=== PATIENT | male | born 1945 | race Caucasian/White ===

== ENCOUNTER → 2020-02-21 | Outpatient (CLI) | payer OTHER ==
[~2020-02-21] MED LIST: ATOR10 PO; Aspirin EC81 MG PO; CVS FISH OIL 11 EACH; CVS MENOPAUSE PO; Calcium Glucon500 MG PO; Crestor20 MG PO; EFFIENT10 MG PO; ELIQUIS5 MG PO; ETOD200 PO; GLIM2 PO; HYDCHL25 PO; HYDR1TAB94 PO; LEFL20 PO; LISI20 PO; LISI5 PO; METF500 PO; METO100ER PO; METO50ER PO; NITR.6SL SL; SULF500 PO; Sulfazine500 MG PO
[2020-02-22 12:57] LABS: Adenovirus F 40/41 Not Detected (NOT DETECT); Astrovirus Not Detected (NOT DETECT); Campylobacter Sp Not Detected (NOT DETECT); Cryptosporidium Not Detected (NOT DETECT); Cyclospora Cayetanensis Not Detected (NOT DETECT); E. Coli O157 Not Detected (NOT DETECT); Entamoeba Histolytica Not Detected (NOT DETECT); Enteroaggregative E. coli-EAEC Not Detected (NOT DETECT); Enteropathogenic E. coli-EPEC Not Detected (NOT DETECT); Enterotoxigenic E. coli-ETEC Not Detected (NOT DETECT); Giardia Lamblia Not Detected (NOT DETECT); Norovirus GI/GII Not Detected (NOT DETECT); Plesiomonas Shigelloides Not Detected (NOT DETECT); Rotavirus A Not Detected (NOT DETECT); Salmonella Sp Not Detected (NOT DETECT); Sapovirus Not Detected (NOT DETECT); Shiga Toxin-prod E. coli-STEC Not Detected (NOT DETECT); Shigella/Enteroin E. coli-EIEC Not Detected (NOT DETECT); Vibrio Cholerae Not Detected (NOT DETECT); Vibrio Sp Not Detected (NOT DETECT); Yersinia Enterocolitica Not Detected (NOT DETECT)
== END | disposition home or self-care (01) ==
LOC: LAB SHORT 10:00 → LAB 10:00 → LAB SHORT 02-22 08:02
PROVIDERS: Nurse Practitioner
DX: K52.9 Noninfective gastroenteritis and colitis, unspecified (principal)
CPT/HCPCS: 0097U

== ENCOUNTER 2021-05-15 08:32 | Observation (INO) | payer OTHER ==
[~2021-05-15] VITALS: Ht 177.8 cm; Wt 69.8 kg
[2021-05-15] MEDS ORDERED: SITA25T2 PO (09:04)
[2021-05-15] MEDS ORDERED: OMEP20ER PO (09:04)
[2021-05-15] MEDS ORDERED: MIDO5 PO (09:05)
[2021-05-15 09:30] LABS: BASOPHILS ABSOLUTE AUTO 0.04 K/mm3 (0.00-0.23); BASOPHILS PERCENT AUTO 0 % (0-2); EOSINOPHILS ABSOLUTE AUTO 0.19 K/mm3 (0.00-0.68); EOSINOPHILS PERCENT AUTO 1 % (0-6); Hematocrit 36.1 % (37.0-53.0); Hemoglobin 12.3 g/dL (13.5-17.5); IMMATURE GRAN ABSOLUTE AUTO 0.07 K/mm3 (0.00-0.10); IMMATURE GRAN PERCENT AUTO 0 % (0-1); LYMPHOCYTES ABSOLUTE AUTO 2.54 K/mm3 (0.84-5.20); LYMPHOCYTES PERCENT AUTO 15 % (21-46); MONOCYTES ABSOLUTE AUTO 1.48 K/mm3 (0.16-1.47); MONOCYTES PERCENT AUTO 9 % (4-13); Mean Corpuscular HGB 28.9 pg (26.0-34.0); Mean Corpuscular HGB Conc 34.1 g/dL (31.5-36.5); Mean Corpuscular Volume 85 fL (80-100); Mean Platelet Volume 11.5 fL (9.1-12.4); NEUTROPHILS ABSOLUTE AUTO 12.76 K/mm3 (1.96-9.15); NEUTROPHILS PERCENT AUTO 75 % (41-73); Platelet Count 221 K/mm3 (150-400); RDW Standard Deviation 36.5 fL (35.1-46.3); Red Blood Cell Count 4.26 M/mm3 (4.30-5.90); White Blood Cell Count 17.08 K/mm3 (4.00-11.30)
[2021-05-15 09:35] LABS: Source, Urine Clean Catch
[2021-05-15 09:38] LABS: Appearance, Urine Clear (Clear); Bilirubin, Urine Neg (Neg); Blood, Urine 1+ (Neg); Color, Urine Yellow (P-Yellow); Glucose Qualitative, Urine Neg (Neg); Ketones, Urine Neg (Neg); Leukocyte Esterase, Urine Neg (Neg); Nitrite, Urine Neg (Neg); Protein, Urine 1+ (Neg); Urobilinogen, Urine NORM (Normal)
[2021-05-15 09:44] LABS: Bacteria Not Seen /hpf; Red Blood Cells, Urine 0-2 /hpf (0-2); Squamous Epithelial Cells Not Seen /hpf (Few); White Blood Cells, Urine 0-2 /hpf (0-5)
[2021-05-15 09:53] LABS: Albumin, Blood 3.4 g/dL (3.4-5.0); Albumin/Globulin Ratio 0.8 (0.8-1.8); Bilirubin, Total 0.5 mg/dL (0.1-1.0); Bun/Creatinine Ratio 10.3 (12.0-20.0); Calcium, Blood 10.1 mg/dL (8.5-10.1); Creatinine, Blood 3.88 mg/dL (0.60-1.20); Globulin, Blood 4.3 g/dL (2.2-4.0); Potassium, Blood 4.3 mmol/L (3.5-5.5); Total Protein, Blood 7.7 g/dL (6.4-8.2)
[2021-05-15 11:47] LABS: Influenza A, PCR NEGATIVE (NEGATIVE); Influenza B, PCR NEGATIVE (NEGATIVE); Resp Syncytial Virus, PCR NEGATIVE (NEGATIVE); SARS-Cov-2 (COVID-19) PCR, MMC NEGATIVE (NEGATIVE)
--- NOTE | 2021-05-15 18:00 | NUR ---
[address] Sun MACE THAT HE SPOKE WITH PATIENT REGARDING FULL CODE STATUS WHILE ON SURGERY THEN WILL BE DNR AFTER SURGERY THE PATIENT WISHES, DR. ORTIZ ALSO SAID HE WILL LET THE RECOVERY PERSONNEL KNOW & ASKED ME TO PASS IT TO THE [employer] SUPERVISOR RN.
--- NOTE | 2021-05-16 02:54 | NUR ---
PT IS ALERT AND ORIENTED X4. UP WITH SBA. PAIN TREATED WITH DILAUDID IV TWICE. VOIDING SMALL AMOUNTS; UNMEASURED. HEART RATE WAS ON 130-140S AT THE BEGINNING (ASYMPTOMATIC) OF THE SHIFT AND DECREASED AFTER 2100 MEDS. PT STATED TO BE HIS NORMAL AT 130S. SKIN INTACT WITH PUNTURE X3; GLUE.
--- NOTE | 2021-05-16 03:05 | NUR ---
PT IS ALERT AND ORIENTED X4. DRINKING FLUIDS AND TOELRATING. VOIDING SMALL AMOUNTS; UNMEASURED. UP WITH MINIMUN ASSITANCE. SKIN INTACT WITH PX3; WITH GLUE. PAIN TREATED WITH DILAUDID TWICE.
[2021-05-16 04:38] LABS: Hematocrit 36.8 % (37.0-53.0); Hemoglobin 12.6 g/dL (13.5-17.5); Mean Corpuscular HGB 29.4 pg (26.0-34.0); Mean Corpuscular HGB Conc 34.2 g/dL (31.5-36.5); Mean Corpuscular Volume 86 fL (80-100); Platelet Count 268 K/mm3 (150-400); Red Blood Cell Count 4.28 M/mm3 (4.30-5.90); White Blood Cell Count 17.08 K/mm3 (4.00-11.30)
--- NOTE | 2021-05-16 15:02 | NUR ---
Initial Interview with [facility] [employer] Teacher 1. Who did you speak with? Spoke with patient 2. What is the patient's prior level of functions? Independent lives alone. Patient able to perform ADL's without assistance. Patient states he as a walker and a wheelchair in his shed if needed. Patient has good friends, Jessy and her that helps when needed. 3. What is the patient's current living situation? Lives alone in a one story home he had built 10 years ago. The residence has four steps in the front and patient able to navigate the steps. He plans to build a ramp. 4. Is the patient and/or family able to provide transportation to and from doctor's appointments and sweet pickle maker prescriptions? Yes, patient still drives 5. Does patient still drive? Yes 6. POA/PCP/NOK: NOK: Jessy friend/PCP Dr. Scarlett Moulton 7. Discharge goals: Home/TBD -Home: patient more than likely will discharge home-no barriers; patient has running water/utilities/safe home environment/support network -DME: TBD; patient has a walker and wheelchair -Medication Management: self-management -Preferred Pharmacy: [facility] -Housekeeping need: patient has a penal officer -Cooking: patient eats out everyday 8. List barriers to discharge: None known at this time 9. Discharge Plan: Plan is to discharge home/TBD 10. PCP Follow up appointment: Will be scheduled within seven calendar days of discharge 11. Patient is a and has her first appointment next week.
--- NOTE | 2021-05-16 16:35 | NUR ---
SHIFT SUMMARY PT A&OX4, VSS/RA, DIALYSIS TODAY, CBG COVERAGE PER EMAR. POD1 LAP APPY, 3 DURABOND SITES CDI. ANUP PO. VOIDING WELL/DENIES FLATUS&BM. PAIN MANAGED WITH 5 MG NORCO. AMB INDEPENDENTLY TO BRP/IN ROOM/HALLWAY, UP TO CHAIR T/O SHIFT. PLAN FOR DC TOMORROW. WILL REPORT TO ONCOMING SUSY MENDIETA.
--- NOTE | 2021-05-17 04:12 | NUR ---
PT IS ALERT AND ORIENTED X4. DRINKING AND EATING. VOIDING SMALL AMOUNTS.AMBULATING. PX3 CDI. PAIN TREATED WITH NORCO WITH GOOD RESULTS. PT STATES TO FEEL BETTER WHEN SEATING. UNEVENTFUL NIGHT.
[2021-05-17 04:36] LABS: Hematocrit 27.9 % (37.0-53.0); Hemoglobin 9.4 g/dL (13.5-17.5)
[2021-05-17 05:12] LABS: Albumin, Blood 3.1 g/dL (3.4-5.0); Anion Gap 9 mmol/L (6-16); Blood Urea Nitrogen 44 mg/dL (8-24); CO2, Blood 30 mmol/L (21-32); Calcium, Blood 9.6 mg/dL (8.5-10.1); Chloride, Blood 98 mmol/L (98-108); Creatinine, Blood 4.42 mg/dL (0.60-1.20); Glomerular Filtration Rate 13 (60-); Glucose, Blood 200 mg/dL (70-99); Magnesium, Blood 1.7 mg/dL (1.6-2.4); Phosphorus, Blood 4.1 mg/dL (2.5-4.9); Potassium, Blood 4.4 mmol/L (3.5-5.5); Sodium, Blood 137 mmol/L (136-145)
[2021-05-17 07:20] LABS: Hematocrit 29.7 % (37.0-53.0); Hemoglobin 9.9 g/dL (13.5-17.5); Mean Corpuscular HGB 29.6 pg (26.0-34.0); Mean Corpuscular HGB Conc 33.3 g/dL (31.5-36.5); Mean Corpuscular Volume 89 fL (80-100); Mean Platelet Volume 11.4 fL (9.1-12.4); Platelet Count 194 K/mm3 (150-400); RDW Coefficient Variation 12.3 % (11.7-14.2); RDW Standard Deviation 39.3 fL (35.1-46.3); Red Blood Cell Count 3.35 M/mm3 (4.30-5.90); White Blood Cell Count 15.89 K/mm3 (4.00-11.30)
[2021-05-17] MEDS ORDERED: Norco 5-325 Ta1 EACH PO (10:43)
--- NOTE | 2021-05-17 10:59 | NUR ---
DISCHARGE NOTE: PATIENT WAS EDUCATED ON DISCHARGE INSTRUCTIONS. HE VERBALIZED UNDERSTANDING OF INSTRUCTIONS. IV WAS TAKEN OUT AND WAS WNL. PATIENT IS TOLERATING PO INTAKE AND IS VOIDING. HIS 3 LAP SITES ON HIS ABD ARE C/D/I. BOWEL TONES ARE ACTIVE. HE IS DRESSED AND HAS HIS ITEMS PACKED. HE WILL BE WHEELCHAIRED OUT TO HIS FRIENDS CAR TO BE TAKEN HOME.
[2021-05-19] MEDS ORDERED: CALCIUM CIT 311 EAC7 PO (10:29)
[2021-05-19] MEDS ORDERED: Vitamin C100 M1 PO (10:29)
[2021-05-19] MEDS ORDERED: ERGO400 PO (10:30)
[2021-05-19] MEDS ORDERED: DHA100 MG PO (10:30)
[2021-05-19] MEDS ORDERED: MIDO5 PO (10:31)
[2021-05-19] MEDS ORDERED: SENNA LAXATIVE8.6 MG PO (10:31)
[2021-05-19] MEDS ORDERED: MULTI-VITAMIN1 EAC2 PO (10:32)
== END 2021-05-17 10:45 | disposition home or self-care (01) ==
LOC: ER 08:32 → SURS 08:33
PROVIDERS: Internal Medicine Nephrology; Physician Assistant; Surgery; ADMIT Family Medicine
PROC: 0DTJ4ZZ Resection of Appendix, Percutaneous Endoscopic Approach (ICD-10-PCS; principal; 2021-05-15 19:00)
DX: K35.891 Other acute appendicitis without perforation, with gangrene (principal); I25.10 Atherosclerotic heart disease of native coronary artery without angina pectoris; I12.0 Hypertensive chronic kidney disease with stage 5 chronic kidney disease or end stage renal disease; E11.22 Type 2 diabetes mellitus with diabetic chronic kidney disease; N18.6 End stage renal disease; E87.1 Hypo-osmolality and hyponatremia; D64.9 Anemia, unspecified; E86.9 Volume depletion, unspecified; K22.9 Disease of esophagus, unspecified; I48.0 Paroxysmal atrial fibrillation; Z99.2 Dependence on renal dialysis; Z20.822 Contact with and (suspected) exposure to COVID-19; Z95.818 Presence of other cardiac implants and grafts; Z87.891 Personal history of nicotine dependence; Z79.84 Long term (current) use of oral hypoglycemic drugs
CPT/HCPCS: 0241U; 36415; 74176; 76705; 80053; 80069; 81001; 82947; 83690; 83735; 85014; 85018; 85025; 85027; 88304; 96365; 96376; 99285-25; A9270; G0257; G0378; J1100; J1170; J2405; J2543; J2704; J3010; J7030

== ENCOUNTER 2021-06-28 10:51 | Day surgery (SDC) | payer OTHER ==
[~2021-06-28] VITALS: Ht 177.8 cm; Wt 74.8 kg
[~2021-06-28 10:51] MED LIST changes: +CALCIUM CIT 311 EAC7 PO; +DHA100 MG PO; +ERGO400 PO; +MIDO5 PO; +MULTI-VITAMIN1 EAC2 PO; +Norco 5-325 Ta1 EACH PO; +OMEP20ER PO; +SENNA LAXATIVE8.6 MG PO; +SITA25T2 PO; +Vitamin C100 M1 PO
--- NOTE | 2021-06-28 15:21 | NUR ---
3mL AIR RELEASED FROM TR BAND. NO BLEEDING, OOZING OR HEMATOMA NOTED. VSS. WILL CONTINUE TO MONITOR.
--- NOTE | 2021-06-28 15:47 | NUR ---
ALL AIR RELEASED FROM TR [facility]AND. NO BLEEDING, OOZING OR HEMATOMA NOTED.
--- NOTE | 2021-06-28 16:37 | NUR ---
PT DRESSED PER SELF. L RADIAL SITE STABLE. DISCHARGE INSTRUCTIONS REVIEWED WITH PT, VERBALIZES UNDERSTANDING OF INSTRUCTIONS. PT TO PRIVATE VEHICLE PER W/C.
== END 2021-06-28 16:30 | disposition home or self-care (01) ==
LOC: MHTC 10:51
DX: T82.898A Other specified complication of vascular prosthetic devices, implants and grafts, initial encounter (principal); N18.6 End stage renal disease; I25.10 Atherosclerotic heart disease of native coronary artery without angina pectoris; I12.0 Hypertensive chronic kidney disease with stage 5 chronic kidney disease or end stage renal disease; E11.22 Type 2 diabetes mellitus with diabetic chronic kidney disease; I65.29 Occlusion and stenosis of unspecified carotid artery; E78.5 Hyperlipidemia, unspecified; I48.0 Paroxysmal atrial fibrillation; M06.9 Rheumatoid arthritis, unspecified; Y71.2 Prosthetic and other implants, materials and accessory cardiovascular devices associated with adverse incidents; Z95.5 Presence of coronary angioplasty implant and graft; Z87.891 Personal history of nicotine dependence; Z79.01 Long term (current) use of anticoagulants; Z79.84 Long term (current) use of oral hypoglycemic drugs
CPT/HCPCS: 76937; 99152; 99153; C1725; C1769; C1887; C1894; J1644; J2250; J3010; J7030; Q9967

== ENCOUNTER 2021-09-08 07:46 | Day surgery (SDC) | payer OTHER ==
[~2021-09-08] VITALS: Ht 177.8 cm; Wt 75.1 kg
== END 2021-09-08 10:21 | disposition home or self-care (01) ==
LOC: ORSCSDS 07:46
PROVIDERS: Surgery
PROC: 0DBL8ZX Excision of Transverse Colon, Via Natural or Artificial Opening Endoscopic, Diagnostic (ICD-10-PCS; principal; 2021-09-08 09:00)
PROC: 0DBH8ZX Excision of Cecum, Via Natural or Artificial Opening Endoscopic, Diagnostic (ICD-10-PCS; principal; 2021-09-08 09:00)
PROC: 0DBM8ZX Excision of Descending Colon, Via Natural or Artificial Opening Endoscopic, Diagnostic (ICD-10-PCS; principal; 2021-09-08 09:00)
PROC: 0DBN8ZX Excision of Sigmoid Colon, Via Natural or Artificial Opening Endoscopic, Diagnostic (ICD-10-PCS; principal; 2021-09-08 09:00)
PROC: 0DBK8ZX Excision of Ascending Colon, Via Natural or Artificial Opening Endoscopic, Diagnostic (ICD-10-PCS; principal; 2021-09-08 09:00)
PROC: 0DB48ZX Excision of Esophagogastric Junction, Via Natural or Artificial Opening Endoscopic, Diagnostic (ICD-10-PCS; 2021-09-08 09:00)
PROC: 0DB68ZX Excision of Stomach, Via Natural or Artificial Opening Endoscopic, Diagnostic (ICD-10-PCS; 2021-09-08 09:00)
DX: R19.5 Other fecal abnormalities (principal); K29.80 Duodenitis without bleeding; I48.91 Unspecified atrial fibrillation; N18.9 Chronic kidney disease, unspecified; E11.9 Type 2 diabetes mellitus without complications; Z79.01 Long term (current) use of anticoagulants; Z79.899 Other long term (current) drug therapy
CPT/HCPCS: 82947; 88305; 88342; J2704; J7030; J7120

== ENCOUNTER 2023-01-09 09:53 | Day surgery (SDC) | payer OTHER ==
[~2023-01-09] VITALS: Ht 177.8 cm; Wt 79.7 kg
[~2023-01-09 09:53] MED LIST changes: +ALOGLIPTIN6.25 M1 PO; +Calcium Acetat667 MG; +FISH OIL; +MULVITA PO; +SEVEC800 PO; +TAMS.4ER PO; +VITAMIN D310 MC4; +Vitamin C100 M1
[2023-01-09 10:49] VITALS: BP 114/88
--- NOTE | 2023-01-09 10:50 | NUR ---
Ambulatory in Day Surgery. History, Chart, Medications and Allergies reviewed before start of procedure.Lungs clear T/O to Auscultation. Patient confirms NPO status and agrees with scheduled surgery. Pre-Op teaching done. Pt verbalizes understanding. Patient States Post-Procedure ride home has been arranged.
--- NOTE | 2023-01-09 12:57 | NUR ---
01/09/23 1257 Nadeem Guzman History, Chart, Medications and Allergies reviewed before start of procedure. MONITOR INTACT WITH CONTINUOUS PULSE OXIMETRY, CONTINUOUS END TITAL CO2, AND INTERMITTENT BLOOD PRESSURE.EKG MONITORED DURING PROCEDURE.O2 VIA POM MASK INTACT THROUGHOUT SEDATION/PROCEDURE. Bite Block Placed,WILL REMOVE AFTER PROCEDURE. See Anesthesia record.
[2023-01-09 13:12] VITALS: BP 122/74
[2023-01-09 13:27] VITALS: BP 122/96
--- NOTE | 2023-01-09 13:29 | NUR ---
Patient up to Ambulate independently. Gait steady. Discharge instructions reviewed with patient. Patient verbalizes understanding. Copy given to patient to take home. Patient States Post-Procedure ride home has been arranged. Discharged via wheelchair to private car for ride home.
== END 2023-01-09 13:40 | disposition home or self-care (01) ==
LOC: ORSCMMR 09:53 → ORD 11:00 → ORSCMMR 11:00
PROVIDERS: Surgery
PROC: 0DB48ZX Excision of Esophagogastric Junction, Via Natural or Artificial Opening Endoscopic, Diagnostic (ICD-10-PCS; principal; 2023-01-09 11:00)
DX: K22.70 Barrett's esophagus without dysplasia (principal); I25.10 Atherosclerotic heart disease of native coronary artery without angina pectoris; E11.22 Type 2 diabetes mellitus with diabetic chronic kidney disease; I12.0 Hypertensive chronic kidney disease with stage 5 chronic kidney disease or end stage renal disease; N18.6 End stage renal disease; K21.9 Gastro-esophageal reflux disease without esophagitis; I48.0 Paroxysmal atrial fibrillation; M06.9 Rheumatoid arthritis, unspecified; Z87.891 Personal history of nicotine dependence; Z79.01 Long term (current) use of anticoagulants; Z79.899 Other long term (current) drug therapy
CPT/HCPCS: 82947; 84132; 88305; J2001; J2704; J7030

== ENCOUNTER 2023-11-13 07:46 | Inpatient (IN) | payer OTHER ==
[~2023-11-13] VITALS: Ht 177.8 cm; Wt 77.2 kg
[2023-11-13] VITALS (18 sets, daily range): BP systolic 80–112; BP diastolic 51–84
[~2023-11-13 07:46] MED LIST changes: +Acerola C500 MG PO; +Amaryl2 MG PO; +BASAGLAR K100 UNIT/1 SC; +Crestor40 MG PO; +DECADRON6 M1 PO; +ENTRESTO 97 MG1 EACH PO; +Heparin Sodium 1000 Units/ML 10ML MDV ONE; +JARDIANCE10 MG PO; +LOKELMA10 GM PO; +METO25ER PO; +MIRALAX17 GM PO; +NS 1,000 ML IV ONE; +NS 250 ML IV ONE; +Nitroglycerin 2 MG/20 ML BTL ONE; +PIOG30 PO; +SITA100T2 PO; +VITAMIN D325 MC3 PO; +Verapamil HCL 2.5 MG/ML 2ML Injection ONE
--- NOTE | 2023-11-13 08:18 | NUR ---
PT HAS BILAT 3+PITING EDEMA FEET. DR DOWNEY IN ROOM TO SEE PT.
--- NOTE | 2023-11-13 09:07 | NUR ---
PT WILL BE TRANSFERED TO PCU [address]OWNEY.
[2023-11-13] MEDS ORDERED: Rena-Vite Tabl0.8 MG PO (10:42)
[2023-11-13] MEDS ORDERED: ROSUVASTATIN CA10 MG PO (10:44)
[2023-11-13 10:47] LABS: Adenovirus Not Detected (NOT DETECT); Bordetella pertussis Not Detected (NOT DETECT); Chlamydophila pneumoniae Not Detected (NOT DETECT); Coronavirus 229E Not Detected (NOT DETECT); Coronavirus HKU1 Not Detected (NOT DETECT); Coronavirus NL63 Not Detected (NOT DETECT); Coronavirus OC43 Not Detected (NOT DETECT); Human Metapneumovirus Not Detected (NOT DETECT); Human Rhinovirus/Enterovirus Not Detected (NOT DETECT); Influenza A/2009-H1 Not Detected (NOT DETECT); Influenza A/H1 Not Detected (NOT DETECT); Influenza A/H3 Not Detected (NOT DETECT); Influenza B Not Detected (NOT DETECT); Mycoplasma pneumoniae Not Detected (NOT DETECT); Parainfluenza Virus 1 Not Detected (NOT DETECT); Parainfluenza Virus 2 Not Detected (NOT DETECT); Parainfluenza Virus 3 Not Detected (NOT DETECT); Parainfluenza Virus 4 Not Detected (NOT DETECT); Respiratory Syncytial Virus Not Detected (NOT DETECT); SARS-Cov-2 (COVID-19), BioFire Not Detected (NOT DETECT)
[2023-11-13] MEDS ORDERED: CALCIUM 600-D31 EAC2 PO (10:49)
[2023-11-13 11:12] LABS: Hematocrit 34.2 % (37.0-53.0); Hemoglobin 11.3 g/dL (13.5-17.5); Mean Corpuscular Volume 97 fL (80-100); Mean Platelet Volume 12.9 fL (9.1-12.4); Platelet Count 88 K/mm3 (150-400); RDW Coefficient Variation 18.3 % (11.7-14.2); RDW Standard Deviation 63.5 fL (35.1-46.3); Red Blood Cell Count 3.53 M/mm3 (4.30-5.90); White Blood Cell Count 11.86 K/mm3 (4.00-11.30)
[2023-11-13 11:40] LABS: Bun/Creatinine Ratio 8.6 (12.0-20.0); Calcium, Blood 8.4 mg/dL (8.5-10.1); Creatinine, Blood 6.52 mg/dL (0.60-1.20)
[2023-11-13] MEDS ORDERED: Midodrine 5 MG Tab PO SCH (13:00)
[2023-11-13] MEDS ORDERED: Albumin (Human) 25gm/100ml 100 ML IV SCH (13:00)
--- NOTE | 2023-11-13 18:32 | NUR ---
SHIFT SUMMARY; ADMIT FROM [facility]. PT SCHEDULED FOR ANGIO TODAY, WAS UNABLE TO PROCEED WITH PROCEDURE FOR MULTIPLE HEALTH CONCERNS. ARRIVES ON 2L VIA NC. L/S DIM T/O, SATS 94%, SOFT BP, AFIB 100-130 WITH EXERTION. AMBULATES IN ROOM WITH ASSISTANCE, REPOSITIONS SELF IN BED. DIAYLSIS COMPLETE TODAY, 1L FLUID RESTRICTION STARTED. PLEASANT AND COOPERATIVE WITH CARE, WILL CONTINUE TO MONITOR AND TREAT UNTIL CHANGE OF SHIFT.
[2023-11-13] MEDS ORDERED: Apixaban 5 MG Tab PO SCH (21:00)
[2023-11-13 23:22] LABS: Source, Urine Clean Catch
[2023-11-13 23:25] LABS: Appearance, Urine Turbid (Clear); Blood, Urine 5+ (Neg); Color, Urine Yellow (P-Yellow); Glucose Qualitative, Urine 4+ (Neg); Ketones, Urine 1+ (Neg); Leukocyte Esterase, Urine 3+ (Neg); Nitrite, Urine Neg (Neg); Protein, Urine 3+ (Neg); Urobilinogen, Urine NORM (Normal)
[2023-11-13 23:38] LABS: Bilirubin, Urine 1+ (Neg)
[2023-11-13 23:40] LABS: Bacteria Many /hpf; Red Blood Cells, Urine 50-100 /hpf (0-2); Squamous Epithelial Cells Few /hpf (Few); White Blood Cells, Urine TNTC /hpf (0-5)
[2023-11-14] VITALS (22 sets, daily range): BP systolic 75–130; BP diastolic 51–110
--- NOTE | 2023-11-14 04:08 | NUR ---
SHIFT NOTES: PT A/OX4 ABLE TO USE CALL LIGHT AND MAKE NEEDS KNOWN. HE IS ON TELE IN AFIB, DENIES CHEST PAIN/PRESSURE. BP STABLE. HE IS ON 2L NC WITH SPO2>90%, DENIES SOB. PT ABLE TO URINATE ENOUGH FOR UA. HE IS RESTING COMFORTABLY WITH THE CALL LIGHT IN REACH, DENIES NEEDS AT THIS TIME. WILL CONTINUE TO MONITOR AND REPORT TO ONCOMING RN
[2023-11-14] MEDS ORDERED: Omeprazole 20 MG CapCR PO SCH (06:00)
[2023-11-14] MEDS ORDERED: Vitamin B Cmplx/Vit C/Folic Ac 1 Tab PO SCH (06:00)
[2023-11-14 06:12] LABS: Hematocrit 34.7 % (37.0-53.0)
[2023-11-14 06:50] LABS: Magnesium, Blood 2.1 mg/dL (1.6-2.4)
[2023-11-14 07:05] LABS: Albumin, Blood 2.5 g/dL (3.4-5.0); Anion Gap 15 mmol/L (3-11); Blood Urea Nitrogen 43 mg/dL (8-24); Bun/Creatinine Ratio 7.7 (12.0-20.0); CO2, Blood 29 mmol/L (21-32); Calcium, Blood 8.6 mg/dL (8.5-10.1); Chloride, Blood 100 mmol/L (98-108); Creatinine, Blood 5.55 mg/dL (0.60-1.20); Glomerular Filtration Rate 10 (60-); Glucose, Blood 234 mg/dL (70-99); Phosphorus, Blood 5.5 mg/dL (2.5-4.9); Potassium, Blood 3.4 mmol/L (3.5-5.5)
[2023-11-14 07:09] LABS: Sodium, Blood 141 mmol/L (136-145)
[2023-11-14] MEDS ORDERED: Albumin (Human) 25gm/100ml 100 ML IV SCH (07:30)
[2023-11-14] MEDS ORDERED: Anticoagulant Sod Citrate Soln 3 ML SYR INJ PRN (07:30)
[2023-11-14] MEDS ORDERED: Insulin Human Lispro 100 Units/ML 3ML Syringe SC SCH (07:30)
[2023-11-14] MEDS ORDERED: Calcium/Vit D 600 mg-400 Unit Tab PO SCH (09:00)
[2023-11-14] MEDS ORDERED: Alogliptin Benzoate 6.25 MG TABLET PO SCH (09:00)
[2023-11-14] MEDS ORDERED: Heparin Sodium,Porcine 5,000 UNIT/0.5 ML SDV SC SCH (09:00)
[2023-11-14] MEDS ORDERED: Rosuvastatin Calcium 10 MG Tab PO SCH (09:00)
[2023-11-14] MEDS ORDERED: CefTRIAXone Sodium 1,000 MG in NS 100 ML IV SCH (09:30)
[2023-11-14 09:31] LABS: Mean Platelet Volume 12.1 fL (9.1-12.4); Platelet Count 98 K/mm3 (150-400)
[2023-11-14 09:47] LABS: International Normalized Ratio 1.4; Prothrombin Time Results 14.6 Sec (9.7-11.5)
[2023-11-14] MEDS ORDERED: Potassium Chloride 10 Meq Tablet SA PO ONE (09:55)
[2023-11-14] MEDS ORDERED: Heparin Sodium,Porcine/0.5 NS 500 ML IV SCH (10:00)
--- NOTE | 2023-11-14 18:06 | NUR ---
SHIFT SUMMARY; ASSUMED CARE AT 0700. A/A/OX4. 2L O2 VIA NC. TAKEN TO DIALYSIS AT [id number]. MOVES SELF IN BED, AMBULATES TO RESTROOM WITH STANDBY ASSIST. 1L FLUID RESTRICTION IN PLACE. BLOOD PRESSURE SOFT PER PT'S BASELINE. MEDICATED WITH MIDODRINE PER EMAR. AFIB WITH RATE 115 UP TO 130 WITH EXERTION BUT RECOVERS TO 100'S WITHIN MINUTES. DENIES CHEST PAIN OR INCRESED SOB WITH EXERTION. NPO AFTER MIDNIGHT TONIGHT FOR POSSIBLE ANGIOGRAM TOMORROW. HEPARIN INFUSING AT 15UNITS/KG. WILL CONTINUE TO MONITOR AND TREAT UNTIL CHANGE OF SHIFT.
[2023-11-14] MEDS ORDERED: Dose Adjust by Pharmacy XX STA (21:35)
[2023-11-14] MEDS ORDERED: Digoxin 0.25 MG/ML 2ML Amp IV ONE (22:10)
[2023-11-15] VITALS (14 sets, daily range): BP systolic 84–117; BP diastolic 62–73
--- NOTE | 2023-11-15 04:06 | NUR ---
SHIFT NOTE: PT A/OX4 USES CALL LIGHT APPROPRIATELY TO MAKE NEEDS KNOWN. HE IS ON TELE IN AFIB WITH RATES 120-140. MD NOTIFIED, DIGOXIN ADMINISTERED-SEE EMAR. RATES CONTINUE TO BE TACHY. PT DENIES CHEST PAIN/PRESSURE. HEPARIN HAS BEEN RUNNING PER EMAR T/O SHIFT. HE HAS BEEN NPO SINCE MIDNIGHT FOR ANGIO ON DAY SHIFT. HE IN 1-2L NC WITH SPO2 >90%. PT REPORTS SOB WITH EXERTION. CALL LIGHT IN REACH, WILL CONTINUE TO MONITOR AND REPORT TO ONCOMING RN
[2023-11-15 04:11] LABS: Hematocrit 33.8 % (37.0-53.0); Hemoglobin 10.7 g/dL (13.5-17.5); Mean Platelet Volume 12.9 fL (9.1-12.4); Platelet Count 115 K/mm3 (150-400)
[2023-11-15] MEDS ORDERED: Dose Adjust by Pharmacy XX STA ×2 (04:55→14:00)
--- NOTE | 2023-11-15 07:18 | NUR ---
UPDATE: SHAYAN CALLED TO NOTIFY NURSING STAFF THAT DREILING WILL BE ROUNDING AROUND NOON. PT IS TO BE KEPT NPO FOR POTENTIAL ANGIOGRAM.
[2023-11-15] MEDS ORDERED: Midodrine 5 MG Tab PO SCH (09:00)
[2023-11-15] MEDS ORDERED: Heparin Sodium 1000 Units/ML 10ML MDV ONE (10:26)
[2023-11-15] MEDS ORDERED: NS 1,000 ML IV ONE (10:26)
[2023-11-15] MEDS ORDERED: Verapamil HCL 2.5 MG/ML 2ML Injection ONE (10:26)
[2023-11-15] MEDS ORDERED: Nitroglycerin 2 MG/20 ML BTL ONE (10:26)
[2023-11-15] MEDS ORDERED: NS 250 ML IV ONE (10:26)
[2023-11-15] MEDS ORDERED: Digoxin 0.25 MG/ML 2ML Amp IV SCH (12:00)
[2023-11-15] MEDS ORDERED: ALOGLIPTIN6.25 M1 PO (16:10)
--- NOTE | 2023-11-15 17:33 | NUR ---
MET WITH PRABHJOT TO DISCUSS CODE STATUS AND FILL OUT A POLST. REVIEWED POLST WITH PATIENT AND HE DECIDED ON DNR AND COMFORT MEASURES. HE WILL BE GOING HOME ON HOSPICE TODAY. COPIES OF POLST MADE AND COPY FAXED TO REGISTRY.
--- NOTE | 2023-11-15 17:48 | NUR ---
DISCHARGE NOTE: ASSUMED CARE OF PT AT 0700 THIS AM. NO ACUTE CHANGES T/O THE DAY. PT HAD HD AND TOLERATED WELL. CARDIOLOGY SPOKE WITH HIM AND HIS FAMILY MEMBER WHILE IN HD AND EXPLAINED THAT THEY WOULD NOT DO AN ANGIOGRAM FOR HIM BECAUSE OF HIS HEALTH CONDITION. PT WAS IN HD FROM [id number]. UPON RETURN TO [facility], PT STATED THAT HE WANTED TO GO HOME AND HE WAS COMFORTABLE AND INFORMED ABOUT HOSPICE AND HIS PLAN OF CARE. CARE MANAGEMENT ARRANGED [facility] TO ADMIT HIM TOMORROW. MEDICATIONS AND CARE PLAN REVIEWED WITH PT, NO QUESTIONS OR CONCERNS. PT TRANSPORTED HOME WITH FAMILY WITH ALL HIS BELONGINGS. NO FURTHER NEEDS IDENTIFIED AT THIS TIME.
== END 2023-11-15 16:48 | disposition hospice, home (50) | DRG 291 ==
LOC: MHTC 07:46 → PCU 09:07 → MHTC 09:08 → SURS 09:08 → PCU 10:10
PROVIDERS: Internal Medicine Nephrology; Student in an Organized Health Care Education/Training Program; ADMIT Internal Medicine
PROC: 5A1D70Z Performance of Urinary Filtration, Intermittent, Less than 6 Hours Per Day (ICD-10-PCS; principal; 2023-11-13)
DX: I13.0 Hypertensive heart and chronic kidney disease with heart failure and stage 1 through stage 4 chronic kidney disease, or unspecified chronic kidney disease (principal); I50.23 Acute on chronic systolic (congestive) heart failure; N18.6 End stage renal disease; N39.0 Urinary tract infection, site not specified; N25.81 Secondary hyperparathyroidism of renal origin; E87.1 Hypo-osmolality and hyponatremia; I25.10 Atherosclerotic heart disease of native coronary artery without angina pectoris; Z66 Do not resuscitate; E11.22 Type 2 diabetes mellitus with diabetic chronic kidney disease; D63.1 Anemia in chronic kidney disease; E87.6 Hypokalemia; I25.5 Ischemic cardiomyopathy; I95.89 Other hypotension; D69.6 Thrombocytopenia, unspecified; E78.5 Hyperlipidemia, unspecified; L89.159 Pressure ulcer of sacral region, unspecified stage; I08.3 Combined rheumatic disorders of mitral, aortic and tricuspid valves; I48.0 Paroxysmal atrial fibrillation; M06.9 Rheumatoid arthritis, unspecified; K21.9 Gastro-esophageal reflux disease without esophagitis; I65.29 Occlusion and stenosis of unspecified carotid artery; I25.2 Old myocardial infarction; Z99.2 Dependence on renal dialysis; Z95.5 Presence of coronary angioplasty implant and graft; Z79.01 Long term (current) use of anticoagulants; Z79.84 Long term (current) use of oral hypoglycemic drugs; Z87.891 Personal history of nicotine dependence; Z86.16 Personal history of COVID-19
CPT/HCPCS: 0202U; 36415; 71045; 74176; 80048; 80069; 81001; 82947; 83735; 83880; 85014; 85018; 85027; 85049; 85610; 85730; 87077; 87086; 87186; 94760; 96365; 96366; 96368; A9270; G0378; J0696; J1160; J1644; J7030; J7050; P9047